=== PATIENT | male | born 1990 ===

== ENCOUNTER 2018-08-11 10:26 | Emergency (ER) | payer BC ==
[2018-08-11] MEDS ORDERED: Diphtheria,Pertussis(Acell),Tetanus Vaccine 0.5 ML Syringe IM ONE (10:51)
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
[2018-08-11 13:54] VITALS: BP 122/63
== END 2018-08-11 13:00 | disposition home or self-care (01) ==
LOC: MW.ED 10:26
DX: S80.811A Abrasion, right lower leg, initial encounter (principal); R21 Rash and other nonspecific skin eruption; M25.561 Pain in right knee; Z23 Encounter for immunization; V89.2XXA Person injured in unspecified motor-vehicle accident, traffic, initial encounter
CPT/HCPCS: 73030-26-RT; 73030-RT; 73562-26-RT; 73562-RT; 73630-26-RT; 73630-RT; 90471; 90715; 99283; 99284-25